=== PATIENT | male | born 1985 | race Caucasian/White ===

== ENCOUNTER 2017-06-21 19:17 | Emergency (ER) | payer MEDICAID ==
[2017-06-21] MEDS ORDERED: NS 1,000 ML IV ONE (20:46)
[2017-06-21] MEDS ORDERED: methylPREDNISolone SOD SUCC 125 MG/2 ML VIAL IVP ONE (20:46)
[2017-06-21] MEDS ORDERED: diphenhydrAMINE 25 MG CAP PO ONE (20:46)
[2017-06-21] MEDS ORDERED: RANITIDINE 50 MG/2 ML VIAL IVP ONE (20:46)
[2017-06-21 20:56] LABS: % IMMATURE GRANULYOCYTES 0.3 % (0.0-1.1); ABSOLUTE IMMATURE GRANULOCYTES 0.02 10^3/uL (0.00-0.10); ADD DIFF? NO; ADD MORPH? NO; ADD SCAN? NO; ATYPICAL LYMPHOCYTE FLAG 0 (0-99); FRAGMENT RBC FLAG 0 (0-99); HEMATOCRIT 47.8 % (40.0-51.0); HEMOGLOBIN 16.4 g/dL (13.7-17.5); LEFT SHIFT FLG 0 (0-99); LIPEMIA HEMOLYSIS FLAG 90 (0-99); MEAN CELL HEMOGLOBIN 30.9 pg (27.9-34.1); MEAN CELL HEMOGLOBIN CONCENTR. 34.3 g/dL (32.4-36.7); MEAN PLATELET VOLUME 10.4 fL (8.7-11.7); PLATELET CLUMPS FLAG 0 (0-99); PLATELET COUNT 301 10^3/uL (150-400); RED BLOOD CELL COUNT 5.31 10^6/uL (4.40-6.38); RED CELL DISTRIBUTION WIDTH 11.9 % (11.5-15.2)
[2017-06-21 21:07] LABS: ALANINE AMINOTRANSFERASE 39 IU/L (21-72); ALKALINE PHOSPHATASE 83 IU/L (38-126); ANION GAP 15 mEq/L (8-16); ASPARTATE AMINOTRANSFERASE 28 IU/L (17-59); BILIRUBIN,TOTAL 0.6 mg/dL (0.1-1.4); BILIRUBIN-CONJUGATED 0.3 mg/dL (0.0-0.5); BILIRUBIN-UNCONJUGATED 0.3 mg/dL (0.0-1.1); CALCIUM 9.9 mg/dL (8.5-10.4); CARBON DIOXIDE 24 mEq/l (22-31); CHLORIDE 103 mEq/L (97-110); CREATININE 0.9 mg/dL (0.7-1.3); GLOMERULAR FILTRATION RATE > 60; GLUCOSE 89 mg/dL (70-100); POTASSIUM 4.2 mEq/L (3.5-5.2); SODIUM 142 mEq/L (134-144); TOTAL PROTEIN 8.6 g/dL (6.3-8.2)
[2017-06-21 21:08] LABS: COLOR PALE YELLOW; LEUKOCYTE ESTERASE,URINE NEGATIVE (NEGATIVE); NITRITE,URINE NEGATIVE (NEGATIVE)
--- NOTE | 2017-06-21 21:22 | EDPHY ---
H & P Stated Complaint: epigastric pain x3 weeks in am, today right side pain Source: Patient Exam Limitations: No limitations - Personal History Current Tetanus Diphtheria and Acellular Pertussis (TDAP): Yes Tetanus Vaccine Date: 2016 - Medical/Surgical History Hx Asthma: No Hx Chronic Respiratory Disease: No Hx Diabetes: No Hx Cardiac Disease: No Hx Renal Disease: No Hx Cirrhosis: No Hx Alcoholism: No Hx HIV/AIDS: No Hx Splenectomy or Spleen Trauma: No Other PMH: wisdom teeth - Social History Smoking Status: Never smoked Time Seen by Provider: 06/21/17 20:13 HPI/ROS: CHIEF COMPLAINT: epigastric pain HISTORY OF PRESENT ILLNESS: 32-year-old male presents emergency department complaining of intermittent epigastric pain in the mornings for the past 3 weeks. Patient reports after he eats this pain goes away. He denies fevers, nausea or vomiting. He denies constipation or diarrhea. Patient states today he had an episode of right side pain and then left side pain. This was brief. Normal bowel movement today, no blood. Patient reports he has been under more stress recently and has been eating more acidic foods and greasy foods recently. Patient states he was diagnosed with acid reflux 10 years ago after an EGD and did not take the medications that were recommended. Patient does not take NSAIDs, does not drink alcohol. REVIEW OF SYSTEMS: A comprehensive 10 point review of systems is otherwise negative aside from elements mentioned in the history of present illness. (Candice Cooper) - Physical Exam Exam: Physical Exam Gen: Alert and Oriented, NAD HEENT: PERRL, moist mucous membranes NECK: no meningismus CV: regular rate and regular rhythm PULM: CTAB, no wheezes ABDOMEN: soft, non tender to palpation, BS present BACK: No CVA tenderness NEURO: Neurologically grossly intact EXTREMITIES: normal appearing SKIN: no rash or break in skin on exposed skin PSYCH: answers questions appropriately. (Candice Cooper) Constitutional: Initial Vital Signs Temperature (C) 36.8 C 06/21/17 19:38 Heart Rate 68 06/21/17 19:38 Respiratory Rate 18 06/21/17 19:38 Blood Pressure 121/95 H 06/21/17 19:38 O2 Sat (%) 99 06/21/17 19:38 O2 Delivery Mode Room Air Allergies/Adverse Reactions: No Known Allergies Allergy (Unverified 06/21/17 19:37) Home Medications: Medication Instructions Recorded NK [No Known Home Meds] 06/21/17 Medical Decision Making ED Course/Re-evaluation: IV established, CBC, chemistry, urinalysis obtained. Patient has a unremarkable normal abdominal exam with no tenderness. Vital signs are normal. CBC and chemistry panel are normal, urinalysis is normal. Patient's symptoms are consistent with acid reflux. He does not want to take any medication for this. I have educated the patient acid reflux and gastritis diets, eating small frequent meals, sleeping with the head of his bed elevated. He has been given a primary care doctor for follow-up to establish care with. Patient is given strict return precautions for any new symptoms or concerns. (Candice Cooper) Differential Diagnosis: Diagnosis considered but not limited to acid reflux, appendicitis, cholecystitis , renal calculi (Candice Cooper) Other Provider: The patient was evaluated and managed by the Physician Manager Skilled/ Nurse Practitioner. My co-signature indicates that I have reviewed this chart and I agree with the findings and plan of care as documented. I am the secondary supervising physician. (Reyna Glasgow) - Data Points Laboratory Results: Laboratory Results 06/21/17 20:36 06/21/17 20:36 Departure - Departure Disposition: Home, Routine, Self-Care Clinical Impression: Epigastric abdominal pain Condition: Good Instructions: Diet for Stomach Ulcers and Gastritis (ED), Gastroesophageal Reflux Disease (ED), Epigastric Pain (ED) Additional Instructions: All of your lab tests were normal. Your urinalysis was normal. Take 20 mg of Pepcid daily for 7 days. Avoid spicy, greasy and acidic foods. Eat small, frequent meals, sleep with the head of your bed elevated. Establish care with a primary care doctor. I have listed the doctor on-call that you can establish care with. Return to the emergency department for vomiting, fevers, worsening symptoms or concerns. Referrals: Ruba Matos MD [Medical Doctor] - As per Instructions (Primary care doctor director of application development)
[2017-06-22 02:34] VITALS: BP 119/62; PULSE 67; RESP 16; TEMP 98.1; O2SAT 96
== END 2017-06-21 21:54 | disposition home or self-care (01) ==
DX: R10.13 Epigastric pain (principal)

== ENCOUNTER 2018-02-10 14:08 | Emergency (ER) | payer MEDICAID ==
[2018-02-10] MEDS ORDERED: NS 1,000 ML IV ONE (15:08)
[2018-02-10] MEDS ORDERED: AZITHROMYCIN 250 MG TAB PO ONE (15:15)
--- NOTE | 2018-02-10 15:18 | EDPHY ---
H & P Stated Complaint: fever, cough sore throat x 4 days--swabbed neg flu/strep UC Time Seen by Provider: 02/10/18 15:02 HPI/ROS: CHIEF COMPLAINT: Sore throat, fever, body aches HISTORY OF PRESENT ILLNESS: Patient is a 32-year-old healthy man who comes to the emergency department complaining a sore throat, fever and body aches for the last 4 days. He was seen at the urgent care 2 days ago and had a negative flu swab and negative strep swab. His symptoms have persisted and he has had a temperature up to 103. No vomiting. No diarrhea. No headache. No altered mental status. No cough for shortness of breath. REVIEW OF SYSTEMS: Constitutional: See HPI EENTM: See HPI Respiratory: denies: cough, shortness of breath Cardiac: denies: chest pain, irregular heart rate, lightheadedness, palpitations Gastrointestinal/Abdominal: denies: abdominal pain, diarrhea, nausea, vomiting, blood streaked stools Genitourinary: denies: dysuria, frequency, hematuria, pain Musculoskeletal: See HPI Skin: denies: lesions, rash, jaundice, bruising Neurological: denies: headache, numbness, paresthesia, tingling, dizziness, weakness Hematologic/Lymphatic: denies: blood clots, easy bleeding, easy bruising Immunologic/allergic: denies: HIV/AIDS, transplant EXAM: GENERAL: Well-appearing, well-nourished and in no acute distress. HEAD: Atraumatic, normocephalic. EYES: Pupils equal round and reactive to light, extraocular movements intact, sclera anicteric, conjunctiva are normal. ENT: TMs normal, nares patent, oropharynx difficult to visualize, patient has significant gag reflex. Moist mucous membranes. NECK: Normal range of motion, supple without lymphadenopathy or JVD. LUNGS: Breath sounds clear to auscultation bilaterally and equal. No wheezes rales or rhonchi. HEART: Regular rate and rhythm without murmurs, rubs or gallops. ABDOMEN: Soft, nontender, normoactive bowel sounds. No guarding, no rebound. No masses appreciated. BACK: No CVA tenderness, no spinal tenderness, step-offs or deformities EXTREMITIES: Achy muscles, Normal range of motion, no pitting or edema. No clubbing or cyanosis. NEUROLOGICAL: Cranial nerves II through XII grossly intact. Normal speech, normal gait. 5/5 strength, normal movement in all extremities, normal sensation PSYCH: Normal mood, normal affect. SKIN: Warm, dry, normal turgor, no visible rashes or lesions. Source: Patient Exam Limitations: No limitations - Personal History Tetanus Vaccine Date: 2016 - Medical/Surgical History Hx Asthma: No Hx Chronic Respiratory Disease: No Hx Diabetes: No Hx Cardiac Disease: No Hx Renal Disease: No Hx Cirrhosis: No Hx Alcoholism: No Hx HIV/AIDS: No Hx Splenectomy or Spleen Trauma: No Other PMH: wisdom teeth - Family History Significant Family History: No pertinent family hx - Social History Smoking Status: Never smoked Alcohol Use: Sober Drug Use: None Constitutional: Initial Vital Signs Temperature (C) 39.1 C H 02/10/18 14:15 Heart Rate 112 H 02/10/18 14:15 Respiratory Rate 18 02/10/18 14:15 Blood Pressure 160/92 H 02/10/18 14:15 O2 Sat (%) 95 02/10/18 14:15 O2 Delivery Mode Room Air Allergies/Adverse Reactions: No Known Allergies Allergy (Unverified 06/21/17 19:37) Home Medications: Medication Instructions Recorded Azithromycin 250 mg PO DAILY #4 tablet 02/10/18 Medical Decision Making ED Course/Re-evaluation: 4:45 p.m. we discussed the test results. I will start the patient on antibiotics because of his foul-smelling breath and symptoms consistent with strep throat. He is agreeable with this plan. We talked about being contagious. 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 We discussed indications for returning. Differential Diagnosis: Partial list of the Differential diagnosis considered include but were not limited to; upper respiratory tract infection, the sinusitis, strep throat, influenza and although unlikely based on the history and physical exam, I also considered pneumonia, meningitis, abscess. I discussed these differential diagnoses and the plan with the patient as well as the usual and expected course. The patient understands that the diagnosis is provisional and that in medicine we are not always correct and that further workup is often warranted. Usual and customary warnings were given. All of the patient's questions were answered. The patient was instructed to return to the emergency department should the symptoms at all worsen or return, otherwise to followup with the physician as we discussed. - Data Points Laboratory Results: 02/10/18 15:18 Nasal Influenza A PCR NEGATIVE FOR FLU A (NEGATIVE) Nasal Influenza B PCR NEGATIVE FOR FLU B (NEGATIVE) Medications Given: Discontinued Medications Azithromycin (Zithromax) 500 mg PO EDNOW ONE PRN Reason: Protocol Stop: 02/10/18 15:16 Last Admin: 02/10/18 15:18 Dose: 500 mg Sodium Chloride (Ns) 1,000 mls @ 0 mls/hr IV ONCE ONE; Wide Open PRN Reason: Protocol Stop: 02/10/18 15:09 Last Admin: 02/10/18 15:09 Dose: 1,000 mls Departure - Departure Disposition: Home, Routine, Self-Care Clinical Impression: Strep throat Condition: Fair Instructions: Strep Throat (ED) Referrals: NONE *PRIMARY CARE P,. [Primary Care Provider] - As per Instructions Elodia Harp DO [Doctor of Osteopathy] - As per Instructions Prescriptions: Azithromycin 250 mg PO DAILY #4 tablet
[2018-02-10 16:04] VITALS: BP 114/76; PULSE 93; RESP 16; TEMP 98.1; O2SAT 95
== END 2018-02-10 16:58 | disposition home or self-care (01) ==
DX: J02.0 Streptococcal pharyngitis (principal); E86.9 Volume depletion, unspecified